=== PATIENT | female | born 1985 | race Caucasian/White ===

== ENCOUNTER 2021-08-01 11:05 | Emergency (ER) | payer OTHER, MEDICAID, SELFPAY ==
[2021-08-01 11:06] VITALS: BP 87/57; PULSE 85; RESP 20; TEMP 36.2; O2SAT 98; BMI 23.9
--- NOTE | 2021-08-01 12:10 | ED.VIS.BACK ---
HPI History of Present Illness Chief Complaint: Back Narrative Narrative: Patient presenting with back pain which she describes as the left gluteal region with radiation down the back of her leg. She is ambulatory. She denies any trauma. No loss of bladder or bowel control. Patient also states that her whole body aches and this has had multiple exposures to COVID-19. She has not had a known fever but does have body aches which she describes as all over. No nausea or vomiting. No chest pain. She is not dyspneic. She has not been vaccinated for COVID-19. She has not previously had COVID-19. PFSH PFS Medical History no medical history Home Medications cyclobenzaprine 10 mg PO Q8H PRN #20 tab 08/01/21 [Rx Last Taken Unknown] naproxen [Naprosyn] 500 mg PO BID PRN #30 tab 08/01/21 [Rx Last Taken Unknown] Allergy/AdvReac Type Severity Reaction Status Date / Time No Known Allergies Allergy Verified 08/01/21 11:32 Social History Smoking Status: Unknown if ever smoked ROS ROS ED Constitutional Constitutional ED: Denies fever(s) Eyes Eyes: Denies blurry vision or diplopia ENT ENT ED: Reports rhinorrhea Cardiovascular Cardiovascular: Denies chest pain or palpitations Respiratory/Chest Respiratory/Chest: Reports other Details: Mild cough Gastrointestinal Gastrointestinal: Denies abdominal pain, diarrhea or nausea Genitourinary Genitourinary ED: Denies dysuria or hematuria Musculoskeletal Musculoskeletal: Reports back pain and myalgias Integumentary Denies Abrasions or rash Neurologic Neurologic: Reports headache(s); Denies paresthesias or weakness EXAM Physical Exam Const Vital Signs: 08/01/21 11:06 Temperature 97.2 F L Temperature Source Temporal Pulse Rate 85 Respiratory Rate 20 H Blood Pressure 87/57 L Blood Pressure Mean 67 Pulse Ox 98 Oxygen Delivery Method Room Air Positive well nourished General Appearance ED: NAD; Negative for pallor HEENT Reports moist mucous membranes Negative for trauma Eyes PERRL and EOMs intact bilaterally Resp normal respiratory effort and clear to auscultation bilaterally Cardio regular rate and regular rhythm Back/Spine Back/Spine Narrative: Tenderness to palpation of her right gluteal region. No bony tenderness over the lumbar spine. No ecchymosis, rash. Extremity normal to inspection Neuro oriented x3 Sensorium / Orientation: alert Psych mental status grossly normal Skin no rashes or lesions noted General Skin Exam: Negative for jaundice or pallor MDM MDM MDM Narrative Medical decision making narrative: Patient presenting with body aches and concern for COVID-19 as well as muscle strain. She states she has not tried anything at home because she does not like to take medication. I counseled her that since she has what is likely musculoskeletal pain in the right gluteal region and body aches she should at least try ibuprofen and Tylenol. She was amenable to getting a dose of Toradol in the ED. I will write her for muscle relaxers and Naprosyn for home but since she is driving I will not give her muscle relaxer in the ER. Patient tested positive for COVID-19 today. Her vital signs are otherwise stable. She does not want to have the monoclonal antibodies that she was not referred. She is given return precautions. Impression: 1. COVID-19 2. Myalgias 3. Muscle strain Lab Data Attestation: I reviewed the patient's lab results. Discharge Plan Triage Chief Complaint: Back ED Provider: Neville Cosby Dx/Rx/DC Orders Instructions: ED Back Spasm, No Trauma Prescriptions: New naproxen [Naprosyn] 500 mg tablet 500 mg PO BID PRN (Reason: pain) Qty: 30 RF: 0 cyclobenzaprine 10 mg tablet 10 mg PO Q8H PRN (Reason: muscle spasm) Qty: 20 RF: 0 Primary Care Provider: Care Physician,No Primary Referrals: Misha Howard MD [STAFF PHYSICIAN] - As soon as possible Care Physician,No Primary [Primary Care Provider] - Disposition Disposition: Home, Self Care
--- NOTE | 2021-08-01 12:21 | ED.RN ---
pt refusing to leave. is c/o cp, pain in her back through buttocks, as far as i know it could be my appendics. I didnt even know he was a dr. as far as i know he could have been cleaning the floors.
[2021-08-01] MEDS: Ketorolac 15 MG/ML Vial IM (12:23)
--- NOTE | 2021-08-01 12:24 | ED.RN ---
provider aware of pt's concerns and comments. pt informed that dr will be in as soon as he can.
--- NOTE | 2021-08-01 12:26 | ED.RN ---
provider with pt at this time.
== END 2021-08-01 12:31 | disposition home or self-care (01) ==
PROVIDERS: Emergency Provider Student in an Organized Health Care Education/Training Program
DX: S39.012A Strain of muscle, fascia and tendon of lower back, initial encounter (principal); X58.XXXA Exposure to other specified factors, initial encounter; Y93.9 Activity, unspecified; Y92.9 Unspecified place or not applicable; Y99.9 Unspecified external cause status; U07.1 COVID-19
CPT/HCPCS: 87426; 96372; 99282